=== PATIENT | female | born 1990 | race Caucasian/White ===

== ENCOUNTER 2017-01-10 17:31 | Emergency (ER) | payer BC, MEDICAID ==
[2017-01-10] MEDS ORDERED: Cyclobenzaprine 10 MG Tab PO ONE (17:53)
[2017-01-10] MEDS ORDERED: Ketorolac 60 MG/2 ML SDV IM ONE (17:53)
--- NOTE | 2017-01-10 18:08 | EDM.PDOC ---
ED HPI GENERAL MEDICAL PROBLEM - General Chief Complaint: Back Pain or Injury Stated Complaint: PT HAS BACK PAIN Time Seen by Provider: 01/10/17 17:34 Source of Information: Reports: Patient, Family History Limitations: Reports: No Limitations - History of Present Illness INITIAL COMMENTS - FREE TEXT/NARRATIVE: History of present illness: []Patient has had 4 days of low back pain bilaterally denies any trauma or previous pain. Her pain Does not radiate. She took some generic Tylenol with caffeine and ibuprofen today without improvement. She denies any pain with urination, blood in the urine, vaginal discharge, incontinence or numbness or tingling. Review of systems: As per history of present illness and below otherwise all systems reviewed and negative. Past medical history: As per history of present illness and as reviewed below otherwise noncontributory. Surgical history: As per history of present illness and as reviewed below otherwise noncontributory. Social history: No reported history of drug or alcohol abuse. Family history: As per history of present illness and as reviewed below otherwise noncontributory. Physical exam: General: Well developed, well nourished in NAD HEENT: Atraumatic, normocephalic, pupils reactive, negative for conjunctival pallor or scleral icterus, mucous membranes moist, throat clear, neck supple, nontender, trachea midline. Lungs: Clear to auscultation, breath sounds equal bilaterally, chest nontender. Heart: S1S2, regular, negative for clicks, rubs, or JVD. Abdomen: Soft, nondistended, nontender. Negative for masses or hepatosplenomegaly. Negative for costovertebral tenderness. Back: Bilateral tenderness over both SI joints is no midline vertebral tenderness. Pelvis: Stable nontender. Genitourinary: Deferred. Rectal: Deferred. Extremities: Atraumatic, negative for cords or calf pain. Neurovascular unremarkable. Neuro: Awake, alert, oriented. Cranial nerves II through XII unremarkable. Cerebellum unremarkable. Motor and sensory unremarkable throughout. Exam nonfocal. Straight leg raise is negative except are equal bilateral Diagnostics: [] Therapeutics: []Toradol Flexeril given with mild improvement Impression: []Back pains over sacroiliac joints Plan: []Diclofenac and Flexeril, follow-up with primary care request physical therapy return here if symptoms worsen or change Definitive disposition and diagnosis as appropriate pending reevaluation and review of above. lower back Pain Score (Numeric/FACES): 6 - Related Data Allergies Allergy/AdvReac Type Severity Reaction Status Date / Time Penicillins Allergy Anaphylactic Verified 01/10/17 17:49 Shock Home Meds: Home Meds Cyclobenzaprine [Flexeril] 10 mg PO BID PRN #12 tablet 01/10/17 [Rx] Diclofenac Sodium [IJD: Diclofenac Sodium] 75 mg PO .TWICE DAILY W MEALS PRN # 16 tab.ec 01/10/17 [Rx] Past Medical History - Past Health History Medical/Surgical History: Denies Medical/Surgical History Respiratory History: Reports: Asthma Social & Family History - Tobacco Use Smoking Status *Q: Current Every Day Smoker Years of Tobacco use: 6 Packs/Tins Daily: 1 Used Tobacco, but Quit: Yes Month Tobacco Last Used: april 2013 Second Hand Smoke Exposure: No - Alcohol Use Days Per Week of Alcohol Use: 0 - Recreational Drug Use Recreational Drug Use: No ED ROS PEDIATRIC - Review of Systems Review Of Systems: See Below (See history of present illness) ED EXAM, GENERAL (PEDS) - Physical Exam Exam: See Below (See history of present illness) Course - Vital Signs Last Recorded V/S: Last Vital Signs Temp 97 F 01/10/17 17:31 Pulse 70 01/10/17 17:31 Resp 24 H 01/10/17 17:31 BP 135/79 01/10/17 17:31 Pulse Ox 100 01/10/17 17:31 - Orders/Labs/Meds Labs: Laboratory Tests 01/10/17 01/10/17 Range/Units 18:00 18:00 Urine Color YELLOW Urine Appearance CLEAR Urine pH 5.5 (5.0-8.0) Ur Specific [place] 1.020 (1.001-1.035) Urine Protein NEGATIVE (NEGATIVE) mg/dL Urine Glucose (UA) NEGATIVE (NEGATIVE) mg/dL Urine Ketones NEGATIVE (NEGATIVE) mg/dL Urine Occult Blood NEGATIVE (NEGATIVE) Urine Nitrite NEGATIVE (NEGATIVE) Urine Bilirubin NEGATIVE (NEGATIVE) Urine Urobilinogen 0.2 (<2.0) EU/dL Ur Leukocyte Esterase TRACE (NEGATIVE) Urine RBC 0-1 (0-2/HPF) Urine WBC 1-3 (0-5/HPF) Ur Epithelial Cells FEW (NONE-FEW) Urine Bacteria FEW (NEGATIVE) Urine Mucus MODERATE (NONE-MOD) Urine HCG, Qual NEGATIVE (NEGATIVE) Meds: Medications Discontinued Medications Generic Name Dose Route Start Last Admin Trade Name Freq PRN Reason Stop Dose Admin Cyclobenzaprine HCl 10 mg 01/10/17 17:53 01/10/17 18:13 Flexeril PO 01/10/17 17:54 10 mg ONETIME ONE Administration Ketorolac Tromethamine 60 mg 01/10/17 17:53 01/10/17 18:13 Toradol IM 01/10/17 17:54 60 mg ONETIME ONE Administration Departure - Departure Time of Disposition: 18:35 Disposition: Home, Self-Care 01 Condition: Good Clinical Impression: Low back pain Qualifiers: Chronicity: acute Back pain laterality: bilateral Sciatica presence: without sciatica Qualified Code(s): M54.5 - Low back pain - Discharge Information Prescriptions: Cyclobenzaprine [Flexeril] 10 mg PO BID PRN #12 tablet PRN Reason: Pain Diclofenac Sodium [IJD: Diclofenac Sodium] 75 mg PO .TWICE DAILY W MEALS PRN # 16 tab.ec PRN Reason: Pain Referrals: PCP,None [Primary Care Provider] - Forms: ED Department Discharge Additional Instructions: The following information is given to patients seen in the emergency department who are being discharged to home. This information is to outline your options for follow-up care. We provide all patients seen in our emergency department with a follow-up referral. The need for follow-up, as well as the timing and circumstances, are variable depending upon the specifics of your emergency department visit. If you don't have a primary care physician on staff, we will provide you with a referral. We always advise you to contact your personal physician following an emergency department visit to inform them of the circumstance of the visit and for follow-up with them and/or the need for any referrals to a consulting specialist. The emergency department will also refer you to a specialist when appropriate. This referral assures that you have the opportunity for follow-up care with a specialist. All of these measure are taken in an effort to provide you with optimal care, which includes your follow-up. Under all circumstances we always encourage you to contact your private physician who remains a resource for coordinating your care. When calling for follow-up care, please make the office aware that this follow-up is from your recent emergency room visit. If for any reason you are refused follow-up, please contact the [facility] Emergency Department at and asked to speak to the emergency department charge nurse. Diclofenac and Flexeril for pain use ice to back follow-up with primary care request physical therapy return if symptoms worsen or change [facility] [address] [place] [id number]
[2017-01-10 18:46] VITALS: BP 128/76
== END 2017-01-10 18:41 | disposition home or self-care (01) ==
LOC: MW.ED 17:31
DX: M54.5 Low back pain (principal); F17.210 Nicotine dependence, cigarettes, uncomplicated; Z88.0 Allergy status to penicillin
CPT/HCPCS: 81001; 81025; 96372; 99283; A9270; J1885

== ENCOUNTER 2018-03-28 07:53 | Observation (INO) | payer BC ==
[2018-03-28] MEDS ORDERED: Sodium Chloride 0.9% 10 ML Syringe FLUSH PRN (08:17)
[2018-03-28] MEDS ORDERED: Ondansetron 4 MG/2 ML SDV IVPUSH ONE (08:17)
[2018-03-28] MEDS ORDERED: Morphine 4 MG/ML Syringe IVPUSH ONE (08:17)
[2018-03-28] MEDS ORDERED: Sodium Chloride 0.9% 1,000 ML IV ONE ×3 (08:17→11:19)
[2018-03-28] MEDS ORDERED: Sodium Chloride 0.9% 2.5 ML Syringe FLUSH PRN (08:17)
--- NOTE | 2018-03-28 09:35 | EDM.PDOC ---
ED HPI GENERAL MEDICAL PROBLEM - General Chief Complaint: Gastrointestinal Problem Stated Complaint: FLU Time Seen by Provider: 03/28/18 08:02 Source of Information: Reports: Patient History Limitations: Reports: No Limitations - History of Present Illness INITIAL COMMENTS - FREE TEXT/NARRATIVE: History of present illness: []Patient complains of severe vomiting since last night at around 10 PM. She was up every 20-30 minutes vomiting. This morning she had severe dry heaves dizziness or weakness. Patient denies any fevers, chills, pain with urination, diarrhea. Patient has no medical problems and states she is not . Review of systems: As per history of present illness and below otherwise all systems reviewed and negative. Past medical history: As per history of present illness and as reviewed below otherwise noncontributory. Surgical history: As per history of present illness and as reviewed below otherwise noncontributory. Social history: No reported history of drug or alcohol abuse. Family history: As per history of present illness and as reviewed below otherwise noncontributory. Physical exam: General: Well developed, well nourished in NAD HEENT: Atraumatic, normocephalic, pupils reactive, negative for conjunctival pallor or scleral icterus, mucous membranes moist, throat clear, neck supple, nontender, trachea midline. Lungs: Clear to auscultation, breath sounds equal bilaterally, chest nontender. Heart: S1S2, regular, negative for clicks, rubs, or JVD. Abdomen: NABS, Soft, nondistended, nontender. Negative for masses or hepatosplenomegaly. Negative for costovertebral tenderness. Pelvis: Stable nontender. Genitourinary: Deferred. Rectal: Deferred. Extremities: Atraumatic, negative for cords or calf pain. Neurovascular unremarkable. Neuro: Awake, alert, oriented. Cranial nerves II through XII unremarkable. Cerebellum unremarkable. Motor and sensory unremarkable throughout. Exam nonfocal. Skin:warm and dry Diagnostics: CBC, chemistry, lactic acid, UA, Therapeutics: Hydration 3 L ED Course: Improved Impression: Dehydration, new onset diabetes. Prescriptions: Zofran Plan: Take meds as directed, follow up with your primary care physician, return to ER if symptoms worsen or change. Definitive disposition and diagnosis as appropriate pending reevaluation and review of above. - Related Data Allergies Allergy/AdvReac Type Severity Reaction Status Date / Time latex Allergy Rash Verified 03/29/18 07:47 Penicillins Allergy Anaphylactic Verified 03/28/18 08:11 Shock Home Meds: Home Meds Ondansetron HCl [Zofran] 4 mg PO Q4HR #12 tablet 03/28/18 [Rx] Past Medical History - Past Health History Medical/Surgical History: Denies Medical/Surgical History Respiratory History: Reports: Asthma Psychiatric History: Reports: Anxiety, Depression Social & Family History - Family History Family Medical History: Noncontributory - Tobacco Use Smoking Status *Q: Current Every Day Smoker Years of Tobacco use: 7 Packs/Tins Daily: 0.5 - Recreational Drug Use Recreational Drug Use: No ED ROS GENERAL - Review of Systems Review Of Systems: ROS reveals no pertinent complaints other than HPI. ED EXAM, GI/ABD - Physical Exam Exam: See Below (See history of present illness) Course - Vital Signs Last Recorded V/S: Last Vital Signs Temp 97.5 F 03/29/18 09:00 Pulse 79 03/29/18 09:00 Resp 18 03/29/18 09:00 BP 133/75 03/29/18 09:00 Pulse Ox 100 03/29/18 09:00 - Orders/Labs/Meds Orders: Active Orders 24 hr Category Date Time Status Patient Status [ADT] Stat ADT 03/28/18 12:05 Active Antiembolic Devices [RC] PER UNIT ROUTINE Care 03/28/18 12:23 Active Oxygen Therapy [RC] PRN Care 03/28/18 12:22 Active Up ad Krystal [RC] ASDIRECTED Care 03/28/18 12:22 Active VTE/DVT Education [RC] PER UNIT ROUTINE Care 03/28/18 12:22 Active Vital Signs [RC] Q4H Care 03/28/18 12:22 Active Ondansetron [Zofran] Med 03/28/18 12:22 Active 4 mg IVPUSH Q4H PRN Pantoprazole [ProTONIX IV] Med 03/28/18 12:30 Active 40 mg IVPUSH Q24H Sequential Compression Device [OM.PC] Per Unit Routine Oth 03/28/18 12:22 Ordered Resuscitation Status Routine Resus Stat 03/28/18 12:22 Ordered Medication Orders Ondansetron HCl (Zofran) 4 mg IVPUSH Q4H PRN PRN Reason: Nausea Pantoprazole Sodium (Protonix Iv) 40 mg IVPUSH Q24H TIEN Last Admin: 03/28/18 13:22 Dose: 40 mg Sodium Chloride (Saline Flush) 10 ml FLUSH ASDIRECTED PRN PRN Reason: Keep Vein Open Last Admin: 03/28/18 08:36 Dose: 10 ml Sodium Chloride (Saline Flush) 2.5 ml FLUSH ASDIRECTED PRN PRN Reason: Keep Vein Open Last Admin: 03/28/18 08:36 Dose: 2.5 ml Labs: Laboratory Tests 03/28/18 03/28/18 03/28/18 Range/Units 08:25 08:25 08:58 WBC 13.70 H (4.0-11.0) K/uL RBC 4.23 L (4.30-5.90) M/uL Hgb 13.2 (12.0-16.0) g/dL Hct 37.3 (36.0-46.0) % MCV 88.2 (80.0-98.0) fL MCH 31.2 (27.0-32.0) pg MCHC 35.4 (31.0-37.0) g/dL RDW Std Deviation 40.4 (28.0-62.0) fl RDW Coeff of Aquiles 13 (11.0-15.0) % Plt Count 308 (150-400) K/uL MPV 10.20 (7.40-12.00) fL Neut % (Auto) 88.0 H (48.0-80.0) % Lymph % (Auto) 6.6 L (16.0-40.0) % [place] % (Auto) 5.3 (0.0-15.0) % Eos % (Auto) 0.0 (0.0-7.0) % Baso % (Auto) 0.1 (0.0-1.5) % Neut # (Auto) 12.1 H (1.4-5.7) K/uL Lymph # (Auto) 0.9 (0.6-2.4) K/uL [place] # (Auto) 0.7 (0.0-0.8) K/uL Eos # (Auto) 0.0 (0.0-0.7) K/uL Baso # (Auto) 0.0 (0.0-0.1) K/uL Nucleated RBC % 0.0 /100WBC Nucleated RBCs # 0 K/uL Lactate (0.20-2.00) mmol/L Sodium 135 L (136-145) mmol/L Potassium 3.5 (3.5-5.1) mmol/L Chloride 100 (98-107) mmol/L Carbon Dioxide 14.7 L (21.0-32.0) mmol/L BUN 17 (7.0-18.0) mg/dL Creatinine 1.4 H (0.6-1.0) mg/dL Est Cr Clr Drug Dosing 48.58 mL/min Estimated GFR (MDRD) 45.8 ml/min Glucose 214 H (74-106) mg/dL Hemoglobin A1c (4.5-6.2) % Calcium 10.5 H (8.5-10.1) mg/dL Total Bilirubin 0.8 (0.2-1.0) mg/dL AST 28 (15-37) IU/L ALT 16 (14-63) IU/L Alkaline Phosphatase 64 (46-116) U/L Total Protein 8.8 H (6.4-8.2) g/dL Albumin 4.6 (3.4-5.0) g/dL Globulin 4.2 H (2.6-4.0) g/dL Albumin/Globulin Ratio 1.1 (0.9-1.6) Lipase 93 (73-393) U/L Urine Color YELLOW Urine Appearance CLEAR Urine pH 6.0 (5.0-8.0) Ur Specific [place] 1.020 (1.001-1.035) Urine Protein 30 H (NEGATIVE) mg/dL Urine Glucose (UA) NEGATIVE (NEGATIVE) mg/dL Urine Ketones >=80 (NEGATIVE) mg/dL Urine Occult Blood LARGE H (NEGATIVE) Urine Nitrite NEGATIVE (NEGATIVE) Urine Bilirubin NEGATIVE (NEGATIVE) Urine Urobilinogen 0.2 (<2.0) EU/dL Ur Leukocyte Esterase NEGATIVE (NEGATIVE) Urine RBC 10-15 (0-2/HPF) Urine WBC 1-2 (0-5/HPF) Ur Epithelial Cells FEW (NONE-FEW) Urine Bacteria FEW (NEGATIVE) Urine HCG, Qual (NEGATIVE) 03/28/18 03/28/18 03/28/18 Range/Units 08:58 09:17 11:41 WBC (4.0-11.0) K/uL RBC (4.30-5.90) M/uL Hgb (12.0-16.0) g/dL Hct (36.0-46.0) % MCV (80.0-98.0) fL MCH (27.0-32.0) pg MCHC (31.0-37.0) g/dL RDW Std Deviation (28.0-62.0) fl RDW Coeff of [place] (11.0-15.0) % Plt Count (150-400) K/uL MPV (7.40-12.00) fL Neut % (Auto) (48.0-80.0) % Lymph % (Auto) (16.0-40.0) % [place] % (Auto) (0.0-15.0) % Eos % (Auto) (0.0-7.0) % Baso % (Auto) (0.0-1.5) % Neut # (Auto) (1.4-5.7) K/uL Lymph # (Auto) (0.6-2.4) K/uL [place] # (Auto) (0.0-0.8) K/uL Eos # (Auto) (0.0-0.7) K/uL Baso # (Auto) (0.0-0.1) K/uL Nucleated RBC % /100WBC Nucleated RBCs # K/uL Lactate 4.7 H (0.20-2.00) mmol/L Sodium 139 (136-145) mmol/L Potassium 3.8 (3.5-5.1) mmol/L Chloride 108 H (98-107) mmol/L Carbon Dioxide 21.4 (21.0-32.0) mmol/L BUN 14 (7.0-18.0) mg/dL Creatinine 0.9 (0.6-1.0) mg/dL Est Cr Clr Drug Dosing 75.58 mL/min Estimated GFR (MDRD) > 60.0 ml/min Glucose 108 H (74-106) mg/dL Hemoglobin A1c (4.5-6.2) % Calcium 8.7 (8.5-10.1) mg/dL Total Bilirubin (0.2-1.0) mg/dL AST (15-37) IU/L ALT (14-63) IU/L Alkaline Phosphatase (46-116) U/L Total Protein (6.4-8.2) g/dL Albumin (3.4-5.0) g/dL Globulin (2.6-4.0) g/dL Albumin/Globulin Ratio (0.9-1.6) Lipase (73-393) U/L Urine Color Urine Appearance Urine pH (5.0-8.0) Ur Specific [place] (1.001-1.035) Urine Protein (NEGATIVE) mg/dL Urine Glucose (UA) (NEGATIVE) mg/dL Urine Ketones (NEGATIVE) mg/dL Urine Occult Blood (NEGATIVE) Urine Nitrite (NEGATIVE) Urine Bilirubin (NEGATIVE) Urine Urobilinogen (<2.0) EU/dL Ur Leukocyte Esterase (NEGATIVE) Urine RBC (0-2/HPF) Urine WBC (0-5/HPF) Ur Epithelial Cells (NONE-FEW) Urine Bacteria (NEGATIVE) Urine HCG, Qual NEGATIVE (NEGATIVE) 03/28/18 03/28/18 Range/Units 11:41 12:35 WBC (4.0-11.0) K/uL RBC (4.30-5.90) M/uL Hgb (12.0-16.0) g/dL Hct (36.0-46.0) % MCV (80.0-98.0) fL MCH (27.0-32.0) pg MCHC (31.0-37.0) g/dL RDW Std Deviation (28.0-62.0) fl RDW Coeff of [place] (11.0-15.0) % Plt Count (150-400) K/uL MPV (7.40-12.00) fL Neut % (Auto) (48.0-80.0) % Lymph % (Auto) (16.0-40.0) % [place] % (Auto) (0.0-15.0) % Eos % (Auto) (0.0-7.0) % Baso % (Auto) (0.0-1.5) % Neut # (Auto) (1.4-5.7) K/uL Lymph # (Auto) (0.6-2.4) K/uL [place] # (Auto) (0.0-0.8) K/uL Eos # (Auto) (0.0-0.7) K/uL Baso # (Auto) (0.0-0.1) K/uL Nucleated RBC % /100WBC Nucleated RBCs # K/uL Lactate 0.9 (0.20-2.00) mmol/L Sodium (136-145) mmol/L Potassium (3.5-5.1) mmol/L Chloride (98-107) mmol/L Carbon Dioxide (21.0-32.0) mmol/L BUN (7.0-18.0) mg/dL Creatinine (0.6-1.0) mg/dL Est Cr Clr Drug Dosing mL/min Estimated GFR (MDRD) ml/min Glucose (74-106) mg/dL Hemoglobin A1c 5.3 (4.5-6.2) % Calcium (8.5-10.1) mg/dL Total Bilirubin (0.2-1.0) mg/dL AST (15-37) IU/L ALT (14-63) IU/L Alkaline Phosphatase (46-116) U/L Total Protein (6.4-8.2) g/dL Albumin (3.4-5.0) g/dL Globulin (2.6-4.0) g/dL Albumin/Globulin Ratio (0.9-1.6) Lipase (73-393) U/L Urine Color Urine Appearance Urine pH (5.0-8.0) Ur Specific [place] (1.001-1.035) Urine Protein (NEGATIVE) mg/dL Urine Glucose (UA) (NEGATIVE) mg/dL Urine Ketones (NEGATIVE) mg/dL Urine Occult Blood (NEGATIVE) Urine Nitrite (NEGATIVE) Urine Bilirubin (NEGATIVE) Urine Urobilinogen (<2.0) EU/dL Ur Leukocyte Esterase (NEGATIVE) Urine RBC (0-2/HPF) Urine WBC (0-5/HPF) Ur Epithelial Cells (NONE-FEW) Urine Bacteria (NEGATIVE) Urine HCG, Qual (NEGATIVE) Meds: Medications Generic Name Dose Route Start Last Admin Trade Name Freq PRN Reason Stop Dose Admin Ondansetron HCl 4 mg 03/28/18 12:22 Zofran IVPUSH Q4H PRN Nausea Pantoprazole Sodium 40 mg 03/28/18 12:30 03/28/18 13:22 Protonix Iv IVPUSH 40 mg Q24H TIEN Administration Sodium Chloride 10 ml 03/28/18 08:17 03/28/18 08:36 Saline Flush FLUSH 10 ml ASDIRECTED PRN Administration Keep Vein Open Sodium Chloride 2.5 ml 03/28/18 08:17 03/28/18 08:36 Saline Flush FLUSH 2.5 ml ASDIRECTED PRN Administration Keep Vein Open Discontinued Medications Generic Name Dose Route Start Last Admin Trade Name Jorge Luis PRN Reason Stop Dose Admin Sodium Chloride 1,000 mls @ 999 mls/hr 03/28/18 08:17 03/28/18 08:31 Normal Saline IV 03/28/18 09:17 999 mls/hr .Bolus ONE Administration Sodium Chloride 1,000 mls @ 999 mls/hr 03/28/18 09:05 03/28/18 10:18 Normal Saline IV 03/28/18 10:05 999 mls/hr .Bolus ONE Administration Sodium Chloride 1,000 mls @ 999 mls/hr 03/28/18 11:19 03/28/18 11:25 Normal Saline IV 03/28/18 12:19 999 mls/hr .Bolus ONE Administration Sodium Chloride 1,000 mls @ 125 mls/hr 03/28/18 12:30 03/28/18 13:22 Normal Saline IV 125 mls/hr ASDIRECTED TIEN Administration Insulin Aspart 0 unit 03/28/18 17:00 03/28/18 17:29 Novolog SUBCUT Not Given TIDAC [facility] Protocol Morphine Sulfate 4 mg 03/28/18 08:17 03/28/18 08:32 Morphine IVPUSH 03/28/18 08:18 4 mg ONETIME ONE Administration Ondansetron HCl 4 mg 03/28/18 08:17 03/28/18 08:32 Zofran IVPUSH 03/28/18 08:18 4 mg ONETIME ONE Administration Potassium Chloride 40 meq 03/29/18 09:08 03/29/18 10:50 Klor-Con M20 PO 03/29/18 09:09 40 meq ONETIME ONE Administration Departure - Departure Time of Disposition: 12:32 Disposition: Refer to Observation Condition: Good Clinical Impression: Diabetes mellitus, new onset, Dehydration - Discharge Information *PRESCRIPTION DRUG MONITORING PROGRAM REVIEWED*: No *COPY OF PRESCRIPTION DRUG MONITORING REPORT IN PATIENT NEDA: No - My Orders Last 24 Hours: My Active Orders 03/28/18 12:05 Patient Status [ADT] Stat - Assessment/Plan Last 24 Hours: My Active Orders 03/28/18 12:05 Patient Status [ADT] Stat
[2018-03-28 12:16] LABS: CHLORIDE,CL 108 mmol/L (98-107); SODIUM,NA 139 mmol/L (136-145)
[2018-03-28] MEDS ORDERED: Ondansetron 4 MG/2 ML SDV IVPUSH PRN (12:22)
[2018-03-28] MEDS ORDERED: Pantoprazole 40 MG Vial IVPUSH SCH (12:30)
[2018-03-28] MEDS ORDERED: Sodium Chloride 0.9% 1,000 ML IV SCH (12:30)
--- NOTE | 2018-03-28 12:30 | PCM.HP ---
H&P History of Present Illness - General Date of Service: 03/28/18 Admit Problem/Dx: Admission Diagnosis/Problem Admission Diagnosis/Problem Dehydration - History of Present Illness Initial Comments - Free Text/Narative: 27 yo female who presents with one day history of nausea and vomiting. On presentations to ED she was noted to have a BP of 109/73, HR of 60, and RR of 24. Her blood glucose was 214, lactic acid of 4 and bicarb was 14. She was treated with 3 liters of normal saline. - Related Data Allergies/Adverse Reactions: Allergies Allergy/AdvReac Type Severity Reaction Status Date / Time Penicillins Allergy Anaphylactic Verified 03/28/18 08:11 Shock Home Medications: Home Meds Ondansetron HCl [Zofran] 4 mg PO Q4HR #12 tablet 03/28/18 [Rx] Past Medical History - Past Health History Medical/Surgical History: Denies Medical/Surgical History Respiratory History: Reports: Asthma Psychiatric History: Reports: Anxiety, Depression Social & Family History - Family History Family Medical History: Noncontributory - Tobacco Use Smoking Status *Q: Current Every Day Smoker Years of Tobacco use: 7 Packs/Tins Daily: 0.5 - Recreational Drug Use Recreational Drug Use: No H&P Review of Systems - Review of Systems: Review Of Systems: ROS reveals no pertinent complaints other than HPI. Exam - Vital Signs Vital Signs: Last Vital Signs Temp 36.1 C 03/28/18 08:09 Pulse 77 03/28/18 10:19 Resp 18 03/28/18 10:19 BP 104/45 L 03/28/18 10:19 Pulse Ox 98 03/28/18 10:19 Weight: 61.235 kg - Exam General: Alert, Oriented Lungs: Clear to Auscultation, Normal Respiratory Effort Cardiovascular: Regular Rate, Regular Rhythm GI/Abdominal Exam: Soft, Non-Tender Extremities: Non-Tender, No Pedal Edema Skin: Warm, Dry, Intact - Patient Data Lab Results Last 24 hrs: Laboratory Results - last 24 hr 03/28/18 03/28/18 03/28/18 Range/Units 08:25 08:25 08:58 WBC 13.70 H (4.0-11.0) K/uL RBC 4.23 L (4.30-5.90) M/uL Hgb 13.2 (12.0-16.0) g/dL Hct 37.3 (36.0-46.0) % MCV 88.2 (80.0-98.0) fL MCH 31.2 (27.0-32.0) pg MCHC 35.4 (31.0-37.0) g/dL RDW Std Deviation 40.4 (28.0-62.0) fl RDW Coeff of Aquiles 13 (11.0-15.0) % Plt Count 308 (150-400) K/uL MPV 10.20 (7.40-12.00) fL Neut % (Auto) 88.0 H (48.0-80.0) % Lymph % (Auto) 6.6 L (16.0-40.0) % [place] % (Auto) 5.3 (0.0-15.0) % Eos % (Auto) 0.0 (0.0-7.0) % Baso % (Auto) 0.1 (0.0-1.5) % Neut # (Auto) 12.1 H (1.4-5.7) K/uL Lymph # (Auto) 0.9 (0.6-2.4) K/uL [place] # (Auto) 0.7 (0.0-0.8) K/uL Eos # (Auto) 0.0 (0.0-0.7) K/uL Baso # (Auto) 0.0 (0.0-0.1) K/uL Nucleated RBC % 0.0 /100WBC Nucleated RBCs # 0 K/uL Lactate (0.20-2.00) mmol/L Sodium 135 L (136-145) mmol/L Potassium 3.5 (3.5-5.1) mmol/L Chloride 100 (98-107) mmol/L Carbon Dioxide 14.7 L (21.0-32.0) mmol/L BUN 17 (7.0-18.0) mg/dL Creatinine 1.4 H (0.6-1.0) mg/dL Est Cr Clr Drug Dosing 48.58 mL/min Estimated GFR (MDRD) 45.8 ml/min Glucose 214 H (74-106) mg/dL Calcium 10.5 H (8.5-10.1) mg/dL Total Bilirubin 0.8 (0.2-1.0) mg/dL AST 28 (15-37) IU/L ALT 16 (14-63) IU/L Alkaline Phosphatase 64 (46-116) U/L Total Protein 8.8 H (6.4-8.2) g/dL Albumin 4.6 (3.4-5.0) g/dL Globulin 4.2 H (2.6-4.0) g/dL Albumin/Globulin Ratio 1.1 (0.9-1.6) Lipase 93 (73-393) U/L Urine Color YELLOW Urine Appearance CLEAR Urine pH 6.0 (5.0-8.0) Ur Specific [place] 1.020 (1.001-1.035) Urine Protein 30 H (NEGATIVE) mg/dL Urine Glucose (UA) NEGATIVE (NEGATIVE) mg/dL Urine Ketones >=80 (NEGATIVE) mg/dL Urine Occult Blood LARGE H (NEGATIVE) Urine Nitrite NEGATIVE (NEGATIVE) Urine Bilirubin NEGATIVE (NEGATIVE) Urine Urobilinogen 0.2 (<2.0) EU/dL Ur Leukocyte Esterase NEGATIVE (NEGATIVE) Urine RBC 10-15 (0-2/HPF) Urine WBC 1-2 (0-5/HPF) Ur Epithelial Cells FEW (NONE-FEW) Urine Bacteria FEW (NEGATIVE) Urine HCG, Qual (NEGATIVE) 03/28/18 03/28/18 03/28/18 Range/Units 08:58 09:17 11:41 WBC (4.0-11.0) K/uL RBC (4.30-5.90) M/uL Hgb (12.0-16.0) g/dL Hct (36.0-46.0) % MCV (80.0-98.0) fL MCH (27.0-32.0) pg MCHC (31.0-37.0) g/dL RDW Std Deviation (28.0-62.0) fl RDW Coeff of [place]iles (11.0-15.0) % Plt Count (150-400) K/uL MPV (7.40-12.00) fL Neut % (Auto) (48.0-80.0) % Lymph % (Auto) (16.0-40.0) % [place] % (Auto) (0.0-15.0) % Eos % (Auto) (0.0-7.0) % Baso % (Auto) (0.0-1.5) % Neut # (Auto) (1.4-5.7) K/uL Lymph # (Auto) (0.6-2.4) K/uL [place] # (Auto) (0.0-0.8) K/uL Eos # (Auto) (0.0-0.7) K/uL Baso # (Auto) (0.0-0.1) K/uL Nucleated RBC % /100WBC Nucleated RBCs # K/uL Lactate 4.7 H (0.20-2.00) mmol/L Sodium 139 (136-145) mmol/L Potassium 3.8 (3.5-5.1) mmol/L Chloride 108 H (98-107) mmol/L Carbon Dioxide 21.4 (21.0-32.0) mmol/L BUN 14 (7.0-18.0) mg/dL Creatinine 0.9 (0.6-1.0) mg/dL Est Cr Clr Drug Dosing 75.58 mL/min Estimated GFR (MDRD) > 60.0 ml/min Glucose 108 H (74-106) mg/dL Calcium 8.7 (8.5-10.1) mg/dL Total Bilirubin (0.2-1.0) mg/dL AST (15-37) IU/L ALT (14-63) IU/L Alkaline Phosphatase (46-116) U/L Total Protein (6.4-8.2) g/dL Albumin (3.4-5.0) g/dL Globulin (2.6-4.0) g/dL Albumin/Globulin Ratio (0.9-1.6) Lipase (73-393) U/L Urine Color Urine Appearance Urine pH (5.0-8.0) Ur Specific [place] (1.001-1.035) Urine Protein (NEGATIVE) mg/dL Urine Glucose (UA) (NEGATIVE) mg/dL Urine Ketones (NEGATIVE) mg/dL Urine Occult Blood (NEGATIVE) Urine Nitrite (NEGATIVE) Urine Bilirubin (NEGATIVE) Urine Urobilinogen (<2.0) EU/dL Ur Leukocyte Esterase (NEGATIVE) Urine RBC (0-2/HPF) Urine WBC (0-5/HPF) Ur Epithelial Cells (NONE-FEW) Urine Bacteria (NEGATIVE) Urine HCG, Qual NEGATIVE (NEGATIVE) Result Diagrams: 03/28/18 08:25 03/28/18 11:41 Problem List Initiated/Reviewed/Updated: Yes Orders Last 24hrs: Active Orders 24 hr Category Date Time Status Patient Status [ADT] Stat ADT 03/28/18 12:05 Active Antiembolic Devices [RC] PER UNIT ROUTINE Care 03/28/18 12:23 Ordered Oxygen Therapy [RC] PRN Care 03/28/18 12:22 Ordered Up ad Krystal [RC] ASDIRECTED Care 03/28/18 12:22 Ordered VTE/DVT Education [RC] PER UNIT ROUTINE Care 03/28/18 12:22 Ordered Vital Signs [RC] Q4H Care 03/28/18 12:22 Ordered [place] [employer] Diet [DIET] Diet 03/28/18 Breakfast Ordered BASIC METABOLIC PANEL,BMP [CHEM] AM Lab 03/29/18 05:11 Ordered CBC WITH AUTO DIFF [HEME] AM Lab 03/29/18 05:11 Ordered GLYCOSYLATED HEMOGLOBIN,HGBA1C [CHEM] Stat Lab 03/28/18 12:24 Ordered LACTIC ACID,WHOLE BLOOD [BG] Stat Lab 03/28/18 12:24 Ordered Insulin Aspart [NovoLOG] Med 03/28/18 17:00 Ordered See Protocol SUBCUT TIDAC Ondansetron [Zofran] Med 03/28/18 12:22 Ordered 4 mg IVPUSH Q4H PRN Sodium Chloride 0.9% @ 125 MLS/HR (1000ml) Med 03/28/18 12:30 Ordered Sodium Chloride 0.9% [Normal Saline] 1,000 ml IV ASDIRECTED Sodium Chloride 0.9% [Saline Flush] Med 03/28/18 08:17 Active 10 ml FLUSH ASDIRECTED PRN Sodium Chloride 0.9% [Saline Flush] Med 03/28/18 08:17 Active 2.5 ml FLUSH ASDIRECTED PRN Saline Lock Insert [OM.PC] Stat Oth 03/28/18 08:16 Ordered Sequential Compression Device [OM.PC] Per Unit Routine Oth 03/28/18 12:22 Ordered Resuscitation Status Routine Resus Stat 03/28/18 12:22 Ordered Medication Orders Sodium Chloride (Normal Saline) 1,000 mls @ 125 mls/hr IV ASDIRECTED TIEN Insulin Aspart (Novolog) 0 unit SUBCUT TIDAC TIEN; Protocol Ondansetron HCl (Zofran) 4 mg IVPUSH Q4H PRN PRN Reason: Nausea Sodium Chloride (Saline Flush) 10 ml FLUSH ASDIRECTED PRN PRN Reason: Keep Vein Open Last Admin: 03/28/18 08:36 Dose: 10 ml Sodium Chloride (Saline Flush) 2.5 ml FLUSH ASDIRECTED PRN PRN Reason: Keep Vein Open Last Admin: 03/28/18 08:36 Dose: 2.5 ml Assessment/Plan Comment:: 27 yo female admitted with gastroenteritis. We will continue fluid resuscitation and repeat a lactic acid. Bicarb is already improving. She was noted to be initially hyperglycemic we will check a HgA1c.
[2018-03-28 12:58] LABS: HEMOGLOBIN A1C 5.3 % (4.5-6.2)
[2018-03-28] MEDS ORDERED: Insulin Aspart 100 Units/ML 3 ML Pen SUBCUT SCH (17:00)
[2018-03-29 05:31] LABS: CHLORIDE,CL 109 mmol/L (98-107); SODIUM,NA 140 mmol/L (136-145)
[2018-03-29] MEDS ORDERED: Potassium Chloride 20 MEQ Tab.ER PO ONE (09:08)
--- NOTE | 2018-03-29 09:09 | PCM.DCSUM1 ---
Discharge Summary - Hospital Course Brief History: 27 yo female who presents with one day history of nausea and vomiting. On presentations to ED she was noted to have a BP of 109/73, HR of 60 , and RR of 24. Her blood glucose was 214, lactic acid of 4 and bicarb was 14. She was treated with 3 liters of normal saline. Diagnosis: Stroke: No - Discharge Data Discharge Date: 03/29/18 Discharge Disposition: Home, Self-Care 01 Condition: Stable - Discharge Diagnosis/Problem(s) (1) Gastroenteritis SNOMED Code(s): 15182161 ICD Code: K52.9 - NONINFECTIVE GASTROENTERITIS AND COLITIS, UNSPECIFIED Status: Acute Current Visit: Yes (2) Dehydration SNOMED Code(s): 55325730 ICD Code: E86.0 - DEHYDRATION Status: Acute Current Visit: Yes - Patient Instructions Diet: Regular Diet as Tolerated Activity: As Tolerated Showering/Bathing: May Shower Notify Provider of: Fever, Increased Pain, Nausea and/or Vomiting - Discharge Plan *PRESCRIPTION DRUG MONITORING PROGRAM REVIEWED*: No *COPY OF PRESCRIPTION DRUG MONITORING REPORT IN PATIENT NEDA: No Prescriptions/Med Rec: Ondansetron HCl [Zofran] 4 mg PO Q4HR #12 tablet Home Medications: Home Meds Ondansetron HCl [Zofran] 4 mg PO Q4HR #12 tablet 03/28/18 [Rx] Oxygen Therapy Mode: Room Air Patient Handouts: Dehydration, Adult, [id number] Referrals: Lulu Hughes DO [Resident] - 04/09/18 2:00 pm (Please come 10-15 minutes earlier for check-in, bring ID and insurance card with you.) PCP,None [Primary Care Provider] - - Discharge Summary/Plan Comment DC Time >30 min.: No Discharge Summary/Plan Comment: Discharge Diagnoses: Gastroenteritis Nausea-resolved [place] was admitted and treated with IVFs overnight. This morning she was doing well and tolerating diet. No further nausea. A1c 5.3, elevated BS likely secondary to stress response. She is to follow up with PCP in 1 week. She is to return to ED or clinic if concerns should arise. - General Info Date of Service: 03/29/18 Admission Dx/Problem (Free Text: Admission Diagnosis/Problem Admission Diagnosis/Problem Dehydration Subjective Update: Doing well this morning, no abdominal pain. No chest pain. No nausea. Tolerating diet well. Functional Status: Reports: Pain Controlled, Tolerating Diet, Ambulating - Review of Systems General: Reports: No Symptoms. Denies: Fever, Weakness, Fatigue Pulmonary: Reports: No Symptoms. Denies: Shortness of Breath Cardiovascular: Reports: No Symptoms. Denies: Chest Pain Gastrointestinal: Reports: No Symptoms. Denies: Abdominal Pain, Nausea, Vomiting Genitourinary: Reports: No Symptoms Musculoskeletal: Reports: No Symptoms Skin: Reports: No Symptoms Neurological: Reports: No Symptoms Psychiatric: Reports: No Symptoms - Patient Data Vitals - Most Recent: Last Vital Signs Temp 97.7 F 03/29/18 04:00 Pulse 76 03/29/18 04:00 Resp 15 03/29/18 04:00 BP 119/67 03/29/18 04:00 Pulse Ox 97 03/29/18 04:00 Weight - Most Recent: 61.235 kg I&O - Last 24 hours: Intake & Output 03/28/18 03/29/18 03/29/18 22:59 06:59 14:59 Intake Total 999 900 Output Total 800 Balance 999 100 Lab Results - Last 24 hrs: Laboratory Results - last 24 hr 03/28/18 03/28/18 03/28/18 Range/Units 08:58 08:58 09:17 WBC (4.0-11.0) K/uL RBC (4.30-5.90) M/uL Hgb (12.0-16.0) g/dL Hct (36.0-46.0) % MCV (80.0-98.0) fL MCH (27.0-32.0) pg MCHC (31.0-37.0) g/dL RDW Std Deviation (28.0-62.0) fl RDW Coeff of [place] (11.0-15.0) % Plt Count (150-400) K/uL MPV (7.40-12.00) fL Neut % (Auto) (48.0-80.0) % Lymph % (Auto) (16.0-40.0) % [place] % (Auto) (0.0-15.0) % Eos % (Auto) (0.0-7.0) % Baso % (Auto) (0.0-1.5) % Neut # (Auto) (1.4-5.7) K/uL Lymph # (Auto) (0.6-2.4) K/uL [place] # (Auto) (0.0-0.8) K/uL Eos # (Auto) (0.0-0.7) K/uL Baso # (Auto) (0.0-0.1) K/uL Nucleated RBC % /100WBC Nucleated RBCs # K/uL Lactate 4.7 H (0.20-2.00) mmol/L Sodium (136-145) mmol/L Potassium (3.5-5.1) mmol/L Chloride (98-107) mmol/L Carbon Dioxide (21.0-32.0) mmol/L BUN (7.0-18.0) mg/dL Creatinine (0.6-1.0) mg/dL Est Cr Clr Drug Dosing mL/min Estimated GFR (MDRD) ml/min Glucose (74-106) mg/dL POC Glucose (60-110) mg/dL Hemoglobin A1c (4.5-6.2) % Calcium (8.5-10.1) mg/dL Urine Color YELLOW Urine Appearance CLEAR Urine pH 6.0 (5.0-8.0) Ur Specific [place] 1.020 (1.001-1.035) Urine Protein 30 H (NEGATIVE) mg/dL Urine Glucose (UA) NEGATIVE (NEGATIVE) mg/dL Urine Ketones >=80 (NEGATIVE) mg/dL Urine Occult Blood LARGE H (NEGATIVE) Urine Nitrite NEGATIVE (NEGATIVE) Urine Bilirubin NEGATIVE (NEGATIVE) Urine Urobilinogen 0.2 (<2.0) EU/dL Ur Leukocyte Esterase NEGATIVE (NEGATIVE) Urine RBC 10-15 (0-2/HPF) Urine WBC 1-2 (0-5/HPF) Ur Epithelial Cells FEW (NONE-FEW) Urine Bacteria FEW (NEGATIVE) Urine HCG, Qual NEGATIVE (NEGATIVE) 03/28/18 03/28/18 03/28/18 Range/Units 11:41 11:41 12:35 WBC (4.0-11.0) K/uL RBC (4.30-5.90) M/uL Hgb (12.0-16.0) g/dL Hct (36.0-46.0) % MCV (80.0-98.0) fL MCH (27.0-32.0) pg MCHC (31.0-37.0) g/dL RDW Std Deviation (28.0-62.0) fl RDW Coeff of [place] (11.0-15.0) % Plt Count (150-400) K/uL MPV (7.40-12.00) fL Neut % (Auto) (48.0-80.0) % Lymph % (Auto) (16.0-40.0) % [place] % (Auto) (0.0-15.0) % Eos % (Auto) (0.0-7.0) % Baso % (Auto) (0.0-1.5) % Neut # (Auto) (1.4-5.7) K/uL Lymph # (Auto) (0.6-2.4) K/uL [place] # (Auto) (0.0-0.8) K/uL Eos # (Auto) (0.0-0.7) K/uL Baso # (Auto) (0.0-0.1) K/uL Nucleated RBC % /100WBC Nucleated RBCs # K/uL Lactate 0.9 (0.20-2.00) mmol/L Sodium 139 (136-145) mmol/L Potassium 3.8 (3.5-5.1) mmol/L Chloride 108 H (98-107) mmol/L Carbon Dioxide 21.4 (21.0-32.0) mmol/L BUN 14 (7.0-18.0) mg/dL Creatinine 0.9 (0.6-1.0) mg/dL Est Cr Clr Drug Dosing 75.58 mL/min Estimated GFR (MDRD) > 60.0 ml/min Glucose 108 H (74-106) mg/dL POC Glucose (60-110) mg/dL Hemoglobin A1c 5.3 (4.5-6.2) % Calcium 8.7 (8.5-10.1) mg/dL Urine Color Urine Appearance Urine pH (5.0-8.0) Ur Specific [place] (1.001-1.035) Urine Protein (NEGATIVE) mg/dL Urine Glucose (UA) (NEGATIVE) mg/dL Urine Ketones (NEGATIVE) mg/dL Urine Occult Blood (NEGATIVE) Urine Nitrite (NEGATIVE) Urine Bilirubin (NEGATIVE) Urine Urobilinogen (<2.0) EU/dL Ur Leukocyte Esterase (NEGATIVE) Urine RBC (0-2/HPF) Urine WBC (0-5/HPF) Ur Epithelial Cells (NONE-FEW) Urine Bacteria (NEGATIVE) Urine HCG, Qual (NEGATIVE) 03/28/18 03/29/18 03/29/18 Range/Units 17:16 04:53 04:53 WBC 7.65 (4.0-11.0) K/uL RBC 3.48 L (4.30-5.90) M/uL Hgb 10.6 L (12.0-16.0) g/dL Hct 31.7 L (36.0-46.0) % MCV 91.1 (80.0-98.0) fL MCH 30.5 (27.0-32.0) pg MCHC 33.4 (31.0-37.0) g/dL RDW Std Deviation 44.2 (28.0-62.0) fl RDW Coeff of [place] 13 (11.0-15.0) % Plt Count 196 (150-400) K/uL MPV 9.80 (7.40-12.00) fL Neut % (Auto) 63.1 (48.0-80.0) % Lymph % (Auto) 24.4 (16.0-40.0) % [place] % (Auto) 11.9 (0.0-15.0) % Eos % (Auto) 0.5 (0.0-7.0) % Baso % (Auto) 0.1 (0.0-1.5) % Neut # (Auto) 4.8 (1.4-5.7) K/uL Lymph # (Auto) 1.9 (0.6-2.4) K/uL [place] # (Auto) 0.9 H (0.0-0.8) K/uL Eos # (Auto) 0.0 (0.0-0.7) K/uL Baso # (Auto) 0.0 (0.0-0.1) K/uL Nucleated RBC % 0.0 /100WBC Nucleated RBCs # 0 K/uL Lactate (0.20-2.00) mmol/L Sodium 140 (136-145) mmol/L Potassium 3.3 L (3.5-5.1) mmol/L Chloride 109 H (98-107) mmol/L Carbon Dioxide 24.8 (21.0-32.0) mmol/L BUN 11 (7.0-18.0) mg/dL Creatinine 0.8 (0.6-1.0) mg/dL Est Cr Clr Drug Dosing 91.97 mL/min Estimated GFR (MDRD) > 60.0 ml/min Glucose 95 (74-106) mg/dL POC Glucose 89 (60-110) mg/dL Hemoglobin A1c (4.5-6.2) % Calcium 8.8 (8.5-10.1) mg/dL Urine Color Urine Appearance Urine pH (5.0-8.0) Ur Specific [place] (1.001-1.035) Urine Protein (NEGATIVE) mg/dL Urine Glucose (UA) (NEGATIVE) mg/dL Urine Ketones (NEGATIVE) mg/dL Urine Occult Blood (NEGATIVE) Urine Nitrite (NEGATIVE) Urine Bilirubin (NEGATIVE) Urine Urobilinogen (<2.0) EU/dL Ur Leukocyte Esterase (NEGATIVE) Urine RBC (0-2/HPF) Urine WBC (0-5/HPF) Ur Epithelial Cells (NONE-FEW) Urine Bacteria (NEGATIVE) Urine HCG, Qual (NEGATIVE) Med Orders - Current: Current Medications Ondansetron HCl (Zofran) 4 mg IVPUSH Q4H PRN PRN Reason: Nausea Pantoprazole Sodium (Protonix Iv) 40 mg IVPUSH Q24H [facility] Last Admin: 03/28/18 13:22 Dose: 40 mg Potassium Chloride (Klor-Con M20) 40 meq PO ONETIME ONE Stop: 03/29/18 09:09 Sodium Chloride (Saline Flush) 10 ml FLUSH ASDIRECTED PRN PRN Reason: Keep Vein Open Last Admin: 03/28/18 08:36 Dose: 10 ml Sodium Chloride (Saline Flush) 2.5 ml FLUSH ASDIRECTED PRN PRN Reason: Keep Vein Open Last Admin: 03/28/18 08:36 Dose: 2.5 ml Discontinued Medications Sodium Chloride (Normal Saline) 1,000 mls @ 999 mls/hr IV .[place] ONE Stop: 03/28/18 09:17 Last Admin: 03/28/18 08:31 Dose: 999 mls/hr Sodium Chloride (Normal Saline) 1,000 mls @ 999 mls/hr IV .[place] ONE Stop: 03/28/18 10:05 Last Admin: 03/28/18 10:18 Dose: 999 mls/hr Sodium Chloride (Normal Saline) 1,000 mls @ 999 mls/hr IV .[place] ONE Stop: 03/28/18 12:19 Last Admin: 03/28/18 11:25 Dose: 999 mls/hr Sodium Chloride (Normal Saline) 1,000 mls @ 125 mls/hr IV ASDIRECTED [facility] Last Admin: 03/28/18 13:22 Dose: 125 mls/hr Insulin Aspart (Novolog) 0 unit SUBCUT TIDAC [facility]; Protocol Last Admin: 03/28/18 17:29 Dose: Not Given Morphine Sulfate (Morphine) 4 mg IVPUSH ONETIME ONE Stop: 03/28/18 08:18 Last Admin: 03/28/18 08:32 Dose: 4 mg Ondansetron HCl (Zofran) 4 mg IVPUSH ONETIME ONE Stop: 03/28/18 08:18 Last Admin: 03/28/18 08:32 Dose: 4 mg - Exam General: Reports: Alert, Oriented, Cooperative Neck: Reports: Supple Lungs: Reports: Clear to Auscultation, Normal Respiratory Effort Cardiovascular: Reports: Regular Rate, Regular Rhythm GI/Abdominal Exam: Normal Bowel Sounds, Soft, Non-Tender, No Organomegaly Extremities: Normal Inspection, Normal Range of Motion, Non-Tender Wound/Incisions: Reports: Healing Well Neurological: Reports: No New Focal Deficit Psy/Mental Status: Reports: Alert, Normal Affect, Normal Mood
[2018-03-29 09:52] VITALS: BP 133/75
== END 2018-03-29 11:00 | disposition home or self-care (01) ==
LOC: MW.ED 07:53 → MW.MS 14:43
PROVIDERS: ADMIT Internal Medicine; ATTEND Internal Medicine
DX: K52.9 Noninfective gastroenteritis and colitis, unspecified (principal); E86.0 Dehydration; E11.65 Type 2 diabetes mellitus with hyperglycemia; J45.909 Unspecified asthma, uncomplicated; F17.200 Nicotine dependence, unspecified, uncomplicated; Z88.0 Allergy status to penicillin; Z79.899 Other long term (current) drug therapy
CPT/HCPCS: 36415; 80048; 80053; 81001; 81025; 82962; 83036; 83605; 83690; 85025; 96361; 96374; 96375; 99284; A9270; C9113; J2270; J2405; J7040

== ENCOUNTER 2018-05-15 08:27 | Emergency (ER) | payer BC ==
[2018-05-15 08:37] VITALS: BP 106/71
[2018-05-15] MEDS ORDERED: Lidocaine 2% Viscous Solution 15 ML Cup PO ONE (08:37)
[2018-05-15] MEDS ORDERED: Benzocaine 20% Topical Spray UD MUCMEM ONE (08:37)
--- NOTE | 2018-05-15 08:38 | EDM.PDOC ---
ED HPI GENERAL MEDICAL PROBLEM - General Chief Complaint: General Stated Complaint: TOOTH PAIN Time Seen by Provider: 05/15/18 08:30 Source of Information: Reports: Patient History Limitations: Reports: No Limitations - History of Present Illness INITIAL COMMENTS - FREE TEXT/NARRATIVE: History of present illness: []Patient broke her tooth several years ago and has been managing her pain at home. 2 days ago her pain has worsened. Review of systems: As per history of present illness and below otherwise all systems reviewed and negative. Past medical history: As per history of present illness and as reviewed below otherwise noncontributory. Surgical history: As per history of present illness and as reviewed below otherwise noncontributory. Social history: No reported history of drug or alcohol abuse. Family history: As per history of present illness and as reviewed below otherwise noncontributory. Physical exam: General: Well developed, well nourished in NAD HEENT: Atraumatic, normocephalic, pupils reactive, negative for conjunctival pallor or scleral icterus, mucous membranes moist, throat clear, neck supple, nontender, trachea midline. Lungs: Clear to auscultation, breath sounds equal bilaterally, chest nontender. Heart: S1S2, regular, negative for clicks, rubs, or JVD. Abdomen: NABS, Soft, nondistended, nontender. Negative for masses or hepatosplenomegaly. Negative for costovertebral tenderness. Pelvis: Stable nontender. Genitourinary: Deferred. Rectal: Deferred. Extremities: Atraumatic, negative for cords or calf pain. Neurovascular unremarkable. Neuro: Awake, alert, oriented. Cranial nerves II through XII unremarkable. Cerebellum unremarkable. Motor and sensory unremarkable throughout. Exam nonfocal. Skin:warm and dry Diagnostics: None Therapeutics: None ED Course: Stable Impression: Chronic dental pain Prescriptions: Clindamycin dental balls given in the ED Plan: Take meds as directed, follow up with your primary care physician, return to ER if symptoms worsen or change. Definitive disposition and diagnosis as appropriate pending reevaluation and review of above. Tooth/Teeth Pain Score (Numeric/FACES): 8 - Related Data Allergies Allergy/AdvReac Type Severity Reaction Status Date / Time latex Allergy Rash Verified 05/15/18 08:37 Penicillins Allergy Anaphylactic Verified 05/15/18 08:37 Shock Home Meds: Home Meds Citalopram Hydrobromide [Celexa] 20 mg PO DAILY 05/15/18 [History] Clindamycin HCl 300 mg PO TID #30 capsule 05/15/18 [Rx] Past Medical History - Past Health History Medical/Surgical History: Denies Medical/Surgical History Cardiovascular History: Reports: None Respiratory History: Reports: Asthma Genitourinary History: Reports: [employer] History: Reports: Psychiatric History: Reports: Anxiety, Depression Dermatologic History: Reports: Other (See Below) Other Dermatologic History: Patient has a history of moles - Infectious Disease History Infectious Disease History: Reports: Herpes, Other (See Below) Other Infectious Disease History: Herpes 1&2 - Past Surgical History Female Surgical History: Reports: None Social & Family History - Family History Family Medical History: Noncontributory - Caffeine Use Caffeine Use: Reports: Coffee ED ROS GENERAL - Review of Systems Review Of Systems: ROS reveals no pertinent complaints other than HPI. ED EXAM, GENERAL - Physical Exam Exam: See Below (See history of present illness) Course - Vital Signs Last Recorded V/S: Last Vital Signs Temp 97.3 F 05/15/18 08:35 Pulse 87 05/15/18 08:35 Resp 18 05/15/18 08:35 BP 106/71 05/15/18 08:35 Pulse Ox 99 05/15/18 08:35 - Orders/Labs/Meds Meds: Medications Discontinued Medications Generic Name Dose Route Start Last Admin Trade Name Freq PRN Reason Stop Dose Admin Benzocaine 2 each 05/15/18 08:37 05/15/18 09:16 Hurricaine One 20% MUCMEM 05/15/18 08:38 2 each ONETIME ONE Administration Lidocaine HCl 15 ml 05/15/18 08:37 05/15/18 09:16 Xylocaine 2% Viscous PO 05/15/18 08:38 15 ml ONETIME ONE Administration Departure - Departure Time of Disposition: 09:32 Disposition: Home, Self-Care 01 Condition: Good Clinical Impression: Chronic dental pain - Discharge Information *PRESCRIPTION DRUG MONITORING PROGRAM REVIEWED*: No *COPY OF PRESCRIPTION DRUG MONITORING REPORT IN PATIENT NEDA: No Prescriptions: Clindamycin HCl 300 mg PO TID #30 capsule Instructions: Tooth Injuries, [id number], Preventive Dental Care, Adult Referrals: PCP,Unknown [Primary Care Provider] - Forms: ED Department Discharge Additional Instructions: The following information is given to patients seen in the emergency department who are being discharged to home. This information is to outline your options for follow-up care. We provide all patients seen in our emergency department with a follow-up referral. The need for follow-up, as well as the timing and circumstances, are variable depending upon the specifics of your emergency department visit. If you don't have a primary care physician on staff, we will provide you with a referral. We always advise you to contact your personal physician following an emergency department visit to inform them of the circumstance of the visit and for follow-up with them and/or the need for any referrals to a consulting specialist. The emergency department will also refer you to a specialist when appropriate. This referral assures that you have the opportunity for follow-up care with a specialist. All of these measure are taken in an effort to provide you with optimal care, which includes your follow-up. Under all circumstances we always encourage you to contact your private physician who remains a resource for coordinating your care. When calling for follow-up care, please make the office aware that this follow-up is from your recent emergency room visit. If for any reason you are refused follow-up, please contact the [facility] at and asked to speak to the emergency department charge nurse. Take meds as directed, follow up with your primary care physician, return to ER if symptoms worsen or change. [facility] [address] [place] [id number]
== END 2018-05-15 09:41 | disposition home or self-care (01) ==
LOC: MW.ED 08:27
DX: K08.89 Other specified disorders of teeth and supporting structures (principal); G89.29 Other chronic pain; F41.9 Anxiety disorder, unspecified; F32.9 Major depressive disorder, single episode, unspecified; Z79.899 Other long term (current) drug therapy; Z91.040 Latex allergy status; Z88.0 Allergy status to penicillin
CPT/HCPCS: 99282; A9270

== ENCOUNTER 2019-01-20 15:37 | Emergency (ER) | payer BC, OTHER ==
[2019-01-20 15:50] VITALS: BP 149/89; PULSE 95
--- NOTE | 2019-01-20 16:04 | EDM.PDOC ---
ED HPI GENERAL MEDICAL PROBLEM - General Chief Complaint: Laceration Stated Complaint: CUT ON LEFT FINGER Time Seen by Provider: 01/20/19 15:48 Source of Information: Reports: Patient History Limitations: Reports: No Limitations - History of Present Illness INITIAL COMMENTS - FREE TEXT/NARRATIVE: HISTORY AND PHYSICAL: History of present illness: Patient is a 28-year-old female who presents to the ED today with concern of a cut to her left index finger approximately 1 hour prior to arrival to the ED. Patient states she is up-to-date on her tetanus as she had updated during her recent a few years ago. 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 Patient denies any other symptoms or concerns. Patient denies fever, chills, chest pain, shortness of breath, or cough. Denies headache, neck stiff ness, change in vision, syncope, or near syncope. Denies nausea, vomiting, abdominal pain, diarrhea, constipation, or dysuria. Has not noted any blood in urine or stool. Patient has been eating and drinking appropriately. Review of systems: As per history of present illness and below otherwise all systems reviewed and negative. Past medical history: As per history of present illness and as reviewed below otherwise noncontributory. Surgical history: As per history of present illness and as reviewed below otherwise noncontributory. Social history: See social history for further information Family history: As per history of present illness and as reviewed below otherwise noncontributory. Physical exam: General: Patient is alert, oriented, and in no acute distress. Patient sitting comfortably on exam table. HEENT: Atraumatic, normocephalic, pupils equal and reactive bilaterally, negative for conjunctival pallor or scleral icterus, mucous membranes moist, TMs normal bilaterally, throat clear, neck supple, nontender, trachea midline. No drooling or trismus noted. No meningeal signs. No hot potato voice noted. Lungs: Clear to auscultation, breath sounds equal bilaterally, chest nontender. Heart: S1S2, regular rate and rhythm without overt murmur Abdomen: Soft, nondistended, nontender. Negative for masses or hepatosplenomegaly. Negative for costovertebral tenderness. Pelvis: Stable nontender. Genitourinary: Deferred. Rectal: Deferred. Skin: Intact, warm, dry. No lesions or rashes noted. Extremities: Negative for cords or calf pain. Neurovascular unremarkable. There is a superficial area of skin missing on the left distal 2nd digit with moderate amount of bleeding. Patient has full ROM of all digits of the left hand and wrist without pain or difficulty. Radial pulse grossly intact with cap refill less than 2 seconds. Neuro: Awake, alert, oriented. Cranial nerves II through XII unremarkable. Cerebellum unremarkable. Motor and sensory unremarkable throughout. Exam nonfocal. Notes: Discussed the importance for follow-up with a primary care provider. Voices understanding and is agreeable to plan of care. Denies any further questions or concerns at this time. Diagnostics: None Therapeutics: Silver nitrate cautery with wound care with SurgiSeal Prescription: None Impression: Finger injury, 2nd digit left Plan: 1. Keep the area clean and dry. Continue to monitor for signs of infection as discussed. 2. Tylenol and/or ibuprofen as directed and as needed for pain management and discomfort. 3. Please follow-up with your primary care provider as discussed. Return to the ED as needed and as discussed. Definitive disposition and diagnosis as appropriate pending reevaluation and review of above. Left Finger-Index Pain Score (Numeric/FACES): 5 - Related Data Allergies Allergy/AdvReac Type Severity Reaction Status Date / Time Penicillins Allergy Severe Anaphylactic Verified 01/20/19 15:49 Shock latex Allergy Mild Rash Verified 01/20/19 15:49 Home Meds: Home Meds . 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: Musculoskeletal History: Reports: None Neurological History: Reports: None Psychiatric History: Reports: Anxiety, Depression Endocrine/Metabolic History: Reports: None Hematologic History: Reports: None Immunologic History: Reports: None Oncologic (Cancer) History: Reports: None Dermatologic History: Reports: Other (See Below) Other Dermatologic History: Patient has a history of moles - Infectious Disease History Infectious Disease History: Reports: Chicken Pox, Mononucleosis Other Infectious Disease History: Herpes 1&2 - Past Surgical History Head Surgeries/Procedures: Reports: None Female Surgical History: Reports: None Social & Family History - Family History Family Medical History: Noncontributory - Tobacco Use Smoking Status *Q: Current Every Day Smoker Years of Tobacco use: 8 Packs/Tins Daily: 0.5 - Caffeine Use Caffeine Use: Reports: Coffee - Recreational Drug Use Recreational Drug Use: No ED ROS GENERAL - Review of Systems Review Of Systems: Comprehensive ROS is negative, except as noted in HPI. ED EXAM, SKIN/RASH Exam: See Below (see dictation) ED SKIN PROCEDURES - Laceration/Wound Repair Left Digit - 2nd (Index) Appearance: Superficial Distal NVT: Neuro & Vascular Intact, No Tendon Injury Skin Prep: Chlorhexidine (Hibiciens) Exploration/Debridement/Repair: Wound Explored, Explored to Base, No Foreign Material Found Closed with: Other (silver nitrate cautery) Lac/Wound length In cm: 1 (missing area of skin) Drain Placement: No Sterile Dressing Applied: Nurse Tetanus Status Addressed: Yes (up to date) Complications: No Course - Vital Signs Last Recorded V/S: Last Vital Signs Temp 97.9 F 01/20/19 15:47 Pulse 95 01/20/19 15:47 Resp 16 01/20/19 15:47 BP 149/89 H 01/20/19 15:47 Pulse Ox 99 01/20/19 15:47 - Orders/Labs/Meds Orders: Active Orders 24 hr Category Date Time Status Communication Order [RC] STAT Care 01/20/19 16:15 Ordered Departure - Departure Time of Disposition: 16:16 Disposition: Home, Self-Care 01 Clinical Impression: Finger injury Qualifiers: Encounter type: initial encounter Laterality: left Qualified Code(s): S69.92XA - Unspecified injury of left wrist, hand and finger(s), initial encounter - Discharge Information Referrals: PCP,None [Primary Care Provider] - Forms: ED Department Discharge Additional Instructions: The following information is given to patients seen in the emergency department who are being discharged to home. This information is to outline your options for follow-up care. We provide all patients seen in our emergency department with a follow-up referral. The need for follow-up, as well as the timing and circumstances, are variable depending upon the specifics of your emergency department visit. If you don't have a primary care physician on staff, we will provide you with a referral. We always advise you to contact your personal physician following an emergency department visit to inform them of the circumstance of the visit and for follow-up with them and/or the need for any referrals to a consulting specialist. The emergency department will also refer you to a specialist when appropriate. This referral assures that you have the opportunity for follow-up care with a specialist. All of these measure are taken in an effort to provide you with optimal care, which includes your follow-up. Under all circumstances we always encourage you to contact your private physician who remains a resource for coordinating your care. When calling for follow-up care, please make the office aware that this follow-up is from your recent emergency room visit. If for any reason you are refused follow-up, please contact the [facility] Emergency Department at and asked to speak to the emergency department charge nurse. [facility] [address] [place] [id number] [facility] [address] [place] [id number] 1. Keep the area clean and dry. Continue to monitor for signs of infection as discussed. 2. Tylenol and/or ibuprofen as directed and as needed for pain management and discomfort. 3. Please follow-up with your primary care provider as discussed. Return to the ED as needed and as discussed. - My Orders Last 24 Hours: My Active Orders 01/20/19 16:15 Communication Order [RC] STAT - Assessment/Plan Last 24 Hours: My Active Orders 01/20/19 16:15 Communication Order [RC] STAT
== END 2019-01-20 16:46 | disposition home or self-care (01) ==
LOC: MW.ED 15:37
DX: S61.211A Laceration without foreign body of left index finger without damage to nail, initial encounter (principal); J45.909 Unspecified asthma, uncomplicated; F17.210 Nicotine dependence, cigarettes, uncomplicated; Z88.0 Allergy status to penicillin; Z91.040 Latex allergy status; W26.8XXA Contact with other sharp object(s), not elsewhere classified, initial encounter; Y93.89 Activity, other specified
CPT/HCPCS: 12001; 99282-25; 99283

== ENCOUNTER 2019-01-26 16:09 | Emergency (ER) | payer OTHER ==
[2019-01-26 16:26] VITALS: BP 110/49; PULSE 89
--- NOTE | 2019-01-26 16:49 | EDM.PDOC ---
ED HPI GENERAL MEDICAL PROBLEM - General Chief Complaint: Wound Recheck Stated Complaint: CUT ON LEFT INDEX FINGER Time Seen by Provider: 01/26/19 16:16 Source of Information: Reports: Patient History Limitations: Reports: No Limitations - History of Present Illness INITIAL COMMENTS - FREE TEXT/NARRATIVE: HISTORY AND PHYSICAL: History of present illness: Patient is a 28 old female presents to the ED today with concern of pain management of a finger laceration that occurred 6 days ago. Patient had a cut to her left index finger that I saw her for personally that occurred when she was using a aging box hand that had missed and got the end of her finger. At that time she did have an area of skin missing on the distal second digit that was bleeding. Did obtain hemostasis with silver nitrate and Surgicel dressing at that time. Patient states that the area has been healing well and that she is applying Neosporin to the end of her finger. Patient states she is here today because she thought the pain would be gone by now but is still having pain and discomfort of the finger. Patient states that she's been taking ibuprofen and icing and does have relief when she ices the finger. Patient denies any other symptoms or concerns. Patient denies fever, chills, chest pain, shortness of breath, or cough. Denies headache, neck stiff ness, change in vision, syncope, or near syncope. Denies nausea, vomiting, abdominal pain, diarrhea, constipation, or dysuria. Has not noted any blood in urine or stool. Patient has been eating and drinking appropriately. Review of systems: As per history of present illness and below otherwise all systems reviewed and negative. Past medical history: As per history of present illness and as reviewed below otherwise noncontributory. Surgical history: As per history of present illness and as reviewed below otherwise noncontributory. Social history: See social history for further information Family history: As per history of present illness and as reviewed below otherwise noncontributory. Physical exam: General: Patient is alert, oriented, and in no acute distress. Patient sitting comfortably on exam table. HEENT: Atraumatic, normocephalic, pupils equal and reactive bilaterally, negative for conjunctival pallor or scleral icterus, mucous membranes moist, TMs normal bilaterally, throat clear, neck supple, nontender, trachea midline. No drooling or trismus noted. No meningeal signs. No hot potato voice noted. Lungs: Clear to auscultation, breath sounds equal bilaterally, chest nontender. Heart: S1S2, regular rate and rhythm without overt murmur Abdomen: Soft, nondistended, nontender. Negative for masses or hepatosplenomegaly. Negative for costovertebral tenderness. Pelvis: Stable nontender. Genitourinary: Deferred. Rectal: Deferred. Skin: Intact, warm, dry. No lesions or rashes noted. Extremities: Atraumatic, negative for cords or calf pain. Neurovascular unremarkable. There is an area of missing skin, approximately 1cm circular by 1- 2 mm deep of the left hand distal 2nd digit without bleeding. This area is blacked as it was priorly cauterized but appears to be healing without drainage. There is mild erythema at the margins of the cautery without warmth. The area is currently covered with petroleum Neosporin but is not warm to the touch and patient does have full ROM without pain or difficulty. Neuro: Awake, alert, oriented. Cranial nerves II through XII unremarkable. Cerebellum unremarkable. Motor and sensory unremarkable throughout. Exam nonfocal. Notes: Discussed the importance for follow-up with a primary care provider. Voices understanding and is agreeable to plan of care. Denies any further questions or concerns at this time. Diagnostics: None Therapeutics: None Prescription: Bactrim DS, Diclofenac Impression: Finger laceration, subsequent encounter Early wound infection Plan: 1. Keep the area clean and dry. Continue to monitor for signs of infection as discussed. Take medication as prescribed. 2. Tylenol as needed for pain management and discomfort. 3. Please follow-up with your primary care provider as discussed. Return to the ED as needed and as discussed. Definitive disposition and diagnosis as appropriate pending reevaluation and review of above. left hand Pain Score (Numeric/FACES): 6 - Related Data Allergies Allergy/AdvReac Type Severity Reaction Status Date / Time Penicillins Allergy Severe Anaphylactic Verified 01/26/19 16:23 Shock latex Allergy Mild Rash Verified 01/26/19 16:23 Home Meds: Home Meds Diclofenac Sodium [Voltaren] 75 mg PO BIDMEALS PRN #15 tab.cr 01/26/19 [Rx] Sulfamethoxazole/Trimethoprim [Bactrim Ds Tablet] 1 each PO BID #20 tablet 01/26 [Rx] Past Medical History - Past Health History Medical/Surgical History: Denies Medical/Surgical History HEENT History: Reports: None Cardiovascular History: Reports: None Respiratory History: Reports: Asthma Gastrointestinal History: Reports: None 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: Musculoskeletal History: Reports: None Neurological History: Reports: None Psychiatric History: Reports: Anxiety, Depression Endocrine/Metabolic History: Reports: None Hematologic History: Reports: None Immunologic History: Reports: None Oncologic (Cancer) History: Reports: None Dermatologic History: Reports: Other (See Below) Other Dermatologic History: Patient has a history of moles - Infectious Disease History Infectious Disease History: Reports: None Other Infectious Disease History: Herpes 1&2 - Past Surgical History Head Surgeries/Procedures: Reports: None Female Surgical History: Reports: None Social & Family History - Family History Family Medical History: Noncontributory - Tobacco Use Smoking Status *Q: Current Every Day Smoker Years of Tobacco use: 6 Packs/Tins Daily: 1 - Caffeine Use Caffeine Use: Reports: None - Recreational Drug Use Recreational Drug Use: No ED ROS GENERAL - Review of Systems Review Of Systems: Comprehensive ROS is negative, except as noted in HPI. ED EXAM, GENERAL - Physical Exam Exam: See Below (see dictation) Course - Vital Signs Last Recorded V/S: Last Vital Signs Temp 97.7 F 01/26/19 16:24 Pulse 89 01/26/19 16:24 Resp 16 01/26/19 16:24 BP 110/49 L 01/26/19 16:24 Pulse Ox 97 01/26/19 16:24 Departure - Departure Time of Disposition: 16:49 Disposition: Home, Self-Care 01 Clinical Impression: Wound infection Finger laceration Qualifiers: Encounter type: subsequent encounter Finger: index finger Damage to nail status : without damage Foreign body presence: without foreign body Laterality: left Qualified Code(s): S61.211D - Laceration without foreign body of left index finger without damage to nail, subsequent encounter - Discharge Information Prescriptions: Diclofenac Sodium [Voltaren] 75 mg PO BIDMEALS PRN #15 tab.cr PRN Reason: Pain Sulfamethoxazole/Trimethoprim [Bactrim Ds Tablet] 1 each PO BID #20 tablet Referrals: PCP,None [Primary Care Provider] - Additional Instructions: The following information is given to patients seen in the emergency department who are being discharged to home. This information is to outline your options for follow-up care. We provide all patients seen in our emergency department with a follow-up referral. The need for follow-up, as well as the timing and circumstances, are variable depending upon the specifics of your emergency department visit. If you don't have a primary care physician on staff, we will provide you with a referral. We always advise you to contact your personal physician following an emergency department visit to inform them of the circumstance of the visit and for follow-up with them and/or the need for any referrals to a consulting specialist. The emergency department will also refer you to a specialist when appropriate. This referral assures that you have the opportunity for follow-up care with a specialist. All of these measure are taken in an effort to provide you with optimal care, which includes your follow-up. Under all circumstances we always encourage you to contact your private physician who remains a resource for coordinating your care. When calling for follow-up care, please make the office aware that this follow-up is from your recent emergency room visit. If for any reason you are refused follow-up, please contact the [facility] Emergency Department at and asked to speak to the emergency department charge nurse. [facility] [address] [place] [id number] [facility] [address] [place] [id number] 1. Keep the area clean and dry. Continue to monitor for signs of infection as discussed. Take medication as prescribed. 2. Tylenol as needed for pain management and discomfort. 3. Please follow-up with your primary care provider as discussed. Return to the ED as needed and as discussed. Sepsis Event Note - Evaluation Sepsis Screening Result: No Definite Risk - Focused Exam Vital Signs: Vital Signs Temp Pulse Resp BP Pulse Ox 01/26/19 16:24 97.7 F 89 16 110/49 L 97 Date Exam was Performed: 01/26/19 Time Exam was Performed: 16:40
== END 2019-01-26 16:57 | disposition home or self-care (01) ==
LOC: MW.ED 16:09
DX: S61.211D Laceration without foreign body of left index finger without damage to nail, subsequent encounter (principal); L08.9 Local infection of the skin and subcutaneous tissue, unspecified; Z88.0 Allergy status to penicillin; Z91.040 Latex allergy status; F17.210 Nicotine dependence, cigarettes, uncomplicated; W26.8XXD Contact with other sharp object(s), not elsewhere classified, subsequent encounter
CPT/HCPCS: 99282